=== PATIENT | female | born 1975 | race Caucasian/White ===

== ENCOUNTER → 2018-07-27 15:05 | Outpatient (CLI) | payer OTHER, SELFPAY ==
[2018-08-02 10:52] LABS: HPV Reflexed? NOT INDICATED
== END ==
PROVIDERS: Family Provider Nurse Practitioner; PCP Nurse Practitioner; Referring Provider Obstetrics & Gynecology; Visit Provider Obstetrics & Gynecology
DX: Z12.4 Encounter for screening for malignant neoplasm of cervix (principal)
CPT/HCPCS: 88175; G0145

== ENCOUNTER → 2018-12-07 | Outpatient (CLI) | payer OTHER, SELFPAY ==
[2018-12-07 14:05] LABS: Estradiol 267.8 pg/mL
[2018-12-08 11:22] LABS: DHEA Sulfate 187.6 ug/dL (41.2-243.7)
== END | disposition home or self-care (01) ==
PROVIDERS: PCP Nurse Practitioner; Visit Provider Obstetrics & Gynecology
DX: N93.8 Other specified abnormal uterine and vaginal bleeding (principal)
CPT/HCPCS: 36415; 82533; 82627; 82670; 84144; 82626